=== PATIENT | female | born 1935 | race African-American/Black ===

== ENCOUNTER → 2016-09-15 | Outpatient (CLI) | payer OTHER ==
[~2016-09-15] MED LIST: ASPIRIN81 MG PO; ATENOLOL25 MG PO; AZO URINARY P97.5 MG PO; CIPRO PO; CLOPIDOGREL75 MG PO; CORICIDIN COLD1 TAB PO; CRANBERRY450 M1 PO; CRESTOR10 MG PO; CRESTOR5 MG PO; FERRO-TIME325 MG PO; FISH OIL 1,0001 CAP PO; FISH OIL 1,001000 MG PO; HUMULIN N100 U/ML SUBQ; HYDROCHLOROTH12.5 M1 PO; IRON325 ( 651 PO; IRON45 MG PO; K-DUR10 MEQ PO; LIDODERM30 EA TOP; LISINOPRIL-HCTZ1 T20 PO; LISINOPRIL20 MG PO; LORTAB 5/500 TA1 TA2 PO; MACROBID100 MG PO; METFORMIN HCL1000 M1 PO; MICROZIDE12.5 M1 PO; MIRALAX17 GM PO; NOVOLIN N100 UNIT/1 SUBQ; NOVOLIN R100 UNITS/ SUBQ; OXYCODONE HCL10 M1 PO; PAIN RELIEF 5%1 EACH TD; PERCOCET 5-3251 TAB PO; POTASSIUM CHLO10 MEQ PO; RESTASIS32 EA OP; SENOKOT S1 TA1 PO; TIZANIDINE HCL4 M1 PO; TRAVATAN5 ML OP; ULTRAM PO; VICODIN ES 7.51 EAC1 PO; VITAMIN D1000 UNIT PO; VITAMIN D35000 UNIT PO; XALATAN OU
--- NOTE | ~2016-09-15 | BD1 ---
[facility] A Service of [facility] & [facility] RADIOLOGY TEXT RESULTS PATIENT: ADEEL BAR LOCATION: [facility] : 37 UNIT #: [id number] AGE: [address]: Daron Cloud MD SEX: F ORDER DR: [id number] [facility] [address] [place], [place] [address] [id number] O MR#: [id number] Acc #: [id number] NAME: ADEEL BAR : 1935 SEX: F STUDY DATE/TIME: 09/15/2016 14:16 UNIT: [facility] ROOM: STUDY DESCRIPTION: BD Dexa Bone Dens 1+ Site Attending Physician: Daron Cloud M.D., Ph.D. Ordering Physician: Daron Cloud M.D., Ph.D. Primary Care Physician: Ayo Perez M.D. MEDICAL IMAGING REPORT This report is preliminary unless electronic signature is present EXAM DXA scan 09/15/2016 HISTORY Status post menopause with no hormone replacement therapy. Osteopenia. Breast carcinoma. Diabetes. Hypertension with blood pressure medication. FINDINGS Bone mineral density in the left femoral neck was 0.704 g/cm2 which is 1.3 standard deviations below the mean when compared to the young adult reference population which is characteristic of osteopenia. This is 0 standard deviations from the mean when compared to the age-matched population. Bone mineral density in the distal left forearm was 0.379 g/cm2 which is 3.6 standard deviations below the mean when compared to the young adult reference population which is characteristic of osteoporosis. This is 0.4 standard deviations below the mean when compared to the age-matched population. IMPRESSION Bone mineral density in the left hip characteristic of osteopenia and within the left forearm characteristic of osteoporosis. Dictated by... Andrzej Gaines M.D. THIS IS AN ELECTRONICALLY VERIFIED REPORT Andrzej Gaines M.D. at 09/16/2016 8:07 AM GONSALO/breonna TD: 09/15/2016 17:27 JOB #: [id number] MEDICAL IMAGING REPORT ST[facility]. [facility] A Service of [facility] & [facility] RADIOLOGY TEXT RESULTS PATIENT: ADEEL BAR LOCATION: [facility] #: [id number] : 37 UNIT #: [id number] AGE: [address]: Daron Cloud MD SEX: F ORDER DR: COPY
== END | disposition home or self-care (01) ==
LOC: CWCC 13:36
DX: Z13.820 Encounter for screening for osteoporosis (principal); Z78.0 Asymptomatic menopausal state; C50.919 Malignant neoplasm of unspecified site of unspecified female breast; M85.88 Other specified disorders of bone density and structure, other site; M81.0 Age-related osteoporosis without current pathological fracture
CPT/HCPCS: 77080

== ENCOUNTER → 2016-11-26 | Outpatient (CLI) | payer OTHER ==
--- NOTE | ~2016-11-26 | MY11 ---
[facility] A Service of [facility] & [facility] RADIOLOGY TEXT RESULTS PATIENT: ADEEL BAR LOCATION: [facility] : 37 UNIT #: [id number] AGE: [address]: Daron Cloud MD SEX: F ORDER DR: [id number] [facility] [address] [place], [place] [address] [id number] O MR#: [id number] Acc #: [id number] NAME: ADEEL BAR : 1935 SEX: F STUDY DATE/TIME: 11/26/2016 14:45 UNIT: [facility] ROOM: STUDY DESCRIPTION: MY Mammogram Screening Dig Rai Attending Physician: Daron Cloud M.D., Ph.D. Ordering Physician: Daron Cloud M.D., Ph.D. Primary Care Physician: Ayo Perez M.D. MEDICAL IMAGING REPORT This report is preliminary unless electronic signature is present EXAM Bilateral digital screening mammogram with CAD. DATE 11/26/2016 HISTORY 81-year-old female with history of left breast cancer, lumpectomy 01/01/2016. No current complaints. COMPARISON Left breast wire localization images from 01/01/2016. Bilateral screening mammogram performed at [facility] 10/21/2015. Left breast digital diagnostic mammogram performed at [facility] 11/17/2015. Bilateral screening mammogram 09/24/2014, 08/29/2013. FINDINGS CC and MLO views were obtained of each breast utilizing digital technique and reviewed with an FDA-approved CAD device. Scattered fibroglandular densities are present bilaterally. There is increased density with architectural distortion in the 6 o'clock position left breast mid to posterior third corresponding to the patient's lumpectomy site. This area is also marked with linear markers on the patient's skin surface today. Allowing for the postsurgical changes, no definite new or recurrent mass lesion can be appreciated on this exam. Within the right breast, the parenchymal pattern is stable, and no new or suspicious nodules are identified. No clustered microcalcifications are evident. Within the right breast, the parenchymal pattern is stable, without new or suspicious abnormality. IMPRESSION Increased density in the 6 o'clock position left breast with architectural STS. [facility] A Service of [facility] / [facility] RADIOLOGY TEXT RESULTS PATIENT: ADEEL BAR LOCATION: [facility] : 37 UNIT #: [id number] AGE: [address]: Daron Cloud MD SEX: F ORDER DR: distortion features in keeping with the expected postoperative findings. Routine bilateral screening mammogram recommended within 1 year. Patients over the age of 40 are entered into a reminder system with target due date for the next mammogram. BIRADS: 2 Benign finding. Dictated by... Gabriela Mckeon M.D. THIS IS AN ELECTRONICALLY VERIFIED REPORT Gabriela Mckeon M.D. at 11/30/2016 7:08 AM LUTHER/georgi TD: 11/29/2016 12:17 JOB #: [id number] MEDICAL IMAGING REPORT Page 1 of 1 COPY
== END | disposition home or self-care (01) ==
LOC: CMAM 14:21
DX: Z12.31 Encounter for screening mammogram for malignant neoplasm of breast (principal); M81.8 Other osteoporosis without current pathological fracture; Z85.3 Personal history of malignant neoplasm of breast; Z98.890 Other specified postprocedural states
CPT/HCPCS: G0202